=== PATIENT | female | born 1980 | race Asian ===

== ENCOUNTER → 2017-09-15 | Outpatient (CLI) | payer OTHER ==
[2017-09-15 18:38] LABS: ALBUMIN 4.5 GM/DL (3.2-5.2); ALBUMIN/GLOBULIN RATIO 1.22 (1.00-1.93); ALKALINE PHOSPHATASE 75 U/L (45-117); ALT/SGPT 17 U/L (12-78); ANION GAP 8 MEQ/L (8-16); AST/SGOT 16 U/L (7-37); BILIRUBIN,TOTAL 0.5 MG/DL (0.2-1.0); BLOOD UREA NITROGEN 13 MG/DL (7-18); CALCIUM LEVEL 8.8 MG/DL (8.5-10.1); CARBON DIOXIDE LEVEL 27 MEQ/L (21-32); CHLORIDE LEVEL 104 MEQ/L (98-107); CREATININE FOR GFR 0.59 MG/DL (0.55-1.02); GLOMERULAR FILTRATION RATE > 60.0 (>60); GLUCOSE, FASTING 78 MG/DL (70-100); POTASSIUM SERUM 3.8 MEQ/L (3.5-5.1); SODIUM LEVEL 139 MEQ/L (136-145); TOTAL PROTEIN 8.2 GM/DL (6.4-8.2)
[2017-09-16 10:28] LABS: CONTROL LINE HPYORI INT CTR LINE PRESENT; H PYLORI QUALITATIVE IgG NEGATIVE (NEGATIVE)
[2017-09-20 08:06] LABS: TISSUE TRANSGLUTAMINASE IgA <2 U/mL (0-3)
[2017-09-20 08:06] LABS: IGASUB3 43.5 mg/dL (13.4-97.9); IgA SERUM (part of Subclasses) 225 mg/dL (87-352)
== END ==
LOC: M LAB 16:41
DX: R19.7 Diarrhea, unspecified (principal)
CPT/HCPCS: 80053

== ENCOUNTER → 2017-09-16 | Outpatient (CLI) | payer OTHER ==
[2017-09-18 08:06] LABS: HEPATITIS B CORE ANTIBODY IGG Negative (Negative)
[2017-09-19 10:14] LABS: HEPATITIS B SURFACE ANTIBODY POSITIVE (POSITIVE)
[2017-09-19 10:19] LABS: HEPATITIS B SURFACE ANTIGEN NEGATIVE (NEGATIVE)
== END ==
LOC: M LAB 16:24
DX: R19.7 Diarrhea, unspecified (principal)
CPT/HCPCS: 84443

== ENCOUNTER → 2017-10-04 | Day surgery (SDC) | payer OTHER ==
[~2017-10-04] MED LIST: LIDOCAINE 2% INJ 100 MG/5 ML SDV (FOR ANES.) As Ordered; ONDANSETRON 4MG/2ML VIAL (J2405) As Ordered; PROPOFOL 200 MG/20 ML VIAL As Ordered
[2017-10-04] MEDS: NS 1,000 ML IV (11:39)
== END | disposition home or self-care (01) ==
LOC: M OPP 11:02
DX: R19.7 Diarrhea, unspecified (principal); D12.2 Benign neoplasm of ascending colon; R11.0 Nausea; Z86.19 Personal history of other infectious and parasitic diseases; J45.909 Unspecified asthma, uncomplicated; G47.00 Insomnia, unspecified; Z88.1 Allergy status to other antibiotic agents; Z88.0 Allergy status to penicillin
CPT/HCPCS: 45380